=== PATIENT | female | born 1965 | race Caucasian/White ===

== ENCOUNTER → 2016-08-04 | Outpatient (CLI) | payer OTHER ==
[~2016-08-04] MED LIST: CELEXA PO; CYMBALTA PO; DESYREL50 MG PO; HUMIBID CS TABL1 TAB PO; IBUPROFEN PO; LEVAQUIN PO; LIPITOR PO; LIPITOR40 MG PO; LORATADINE PO; METHOCARBAMOL500 MG PO; NORCO 7.5-3251 EACH PO; PREDNISONE PO; SYMBICORT80 INH; SYNTHROID PO; VOLTAREN75 MG PO; ZOCOR10 MG PO
--- NOTE | ~2016-08-04 | MR31 ---
[facility] A Service of [facility] & [facility] RADIOLOGY TEXT RESULTS PATIENT: CHRIS HERNANDEZ LOCATION: CMRI : 63 UNIT #: [id number] AGE: [address]: Ghassan Mooney II, MD SEX: F ORDER DR: [id number] [facility] [address] [place], [place] [address] [id number] O MR#: [id number] Acc #: [id number] NAME: CHRIS HERNANDEZ. : 1965 SEX: F STUDY DATE/TIME: 08/04/2016 14:58 UNIT: [facility] ROOM: STUDY DESCRIPTION: MR Cervical WWo Contrast Attending Physician: Ghassan Mooney II., M.D. Referring Physician: Ghassan Mooney II., M.D. Ordering Physician: Ghassan Mooney II., M.D. Primary Care Physician: Bal Gerardo M.D. MRI CENTER REPORT This report is preliminary unless electronic signature is present. EXAM MRI of the cervical spine with and without contrast dated 08/04/2016. COMPARISON MRI cervical spine without contrast dated 12/24/2015. HISTORY Multiple sclerosis diagnosed 4-5 years ago. Patient has a cane to help with walking. Numbness in the left leg for 2 years. Intermittent imbalance. TECHNIQUE Multisequence multiplanar imaging of the cervical spine was obtained with and without contrast. GFR measured 41. 15 mL of MultiHance was administered intravenously. FINDINGS Disc osteophyte complex are noted throughout the cervical spine. Increased T2 signal is noted in the right posterolateral aspect of the C2-3 cord without enhancement. It measures 1 cm in height. Remaining cord does not demonstrate any significant signal change. It does appear compressed due to severe canal stenosis at C5-6 level. Pre and paravertebral soft tissues do not demonstrate any significant abnormality. Imaged posterior fossa is unremarkable. C2-3: Concentric disc bulge with gcmjubav-dx-ofjhqv right and moderate left facet hypertrophic change. Mild to moderate right neural foraminal narrowing. Borderline-sized canal. Stable. C3-4: Disc osteophyte complex with wrbqj-xu-kzwo subarticular broad-based disc protrusion, moderate to severe canal stenosis, mild bilateral facet changes and mild inferior bilateral neural foraminal encroachment. Stable. STS. [facility] A Service of [facility] RADIOLOGY TEXT RESULTS PATIENT: CHRIS HERNANDEZ LOCATION: CMRI : 63 UNIT #: [id number] AGE: [address]: Ghassan Mooney II, MD SEX: F ORDER DR: C4-5: Disc osteophyte complex which is asymmetrically prominent in the gazjt-kn-axrm subarticular region. Severe canal stenosis is seen with some cord flattening without direct cord impingement. Severe left and mild to moderate right neural foraminal narrowing are present. C5-6: Disc osteophyte complex with superimposed central to left foraminal moderate broad-based protrusion with suspicious extruded component in the center. Severe canal stenosis and cord compression is seen. There is severe left neural foraminal narrowing. Pvdg-io-bkpmyljd bilateral facet changes are noted. C6-7: Disc osteophyte complex with bilateral uncinate spurs, severe canal stenosis, inferior severe bilateral neural foraminal narrowing. Mild bilateral facet change. C7-T1: Mild disc bulge without canal stenosis or neural foraminal narrowing. Mild bilateral facet changes. IMPRESSION 1. Degenerative changes are noted at multiple levels as described above, worse at C5-6 followed by C6-7 and C4-5 with canal stenosis and neural foraminal narrowing. 2. There is cord compression at C5-6 without obvious cord signal change yet. 3. Increased T2 signal is noted in the right posterolateral aspect of C2-3 without enhancement. In the setting of multiple sclerosis. It is in keeping with chronic plaque. Stable. 1. Dictated by... Mahogany Celaya M.D. THIS IS AN ELECTRONICALLY VERIFIED REPORT Mahogany Celaya M.D. at 08/06/2016 4:18 PM MAYANK/celeste TD: 08/05/2016 15:21 JOB #: [id number] MRI CENTER REPORT Page 1 of 1 COPY
--- NOTE | ~2016-08-04 | MR17 ---
[facility] A Service of [facility] & [facility] RADIOLOGY TEXT RESULTS PATIENT: CHRIS HERNANDEZ LOCATION: CMRI : 63 UNIT #: [id number] AGE: [address]: Ghassan Mooney II, MD SEX: F ORDER DR: [id number] [facility] [address] [place], [place] [address] [id number] O MR#: [id number] Acc #: [id number] NAME: CHRIS HERNANDEZ. : 1965 SEX: F STUDY DATE/TIME: 08/04/2016 14:58 UNIT: [facility] ROOM: STUDY DESCRIPTION: MR Brain WWo Contrast Attending Physician: Ghassan Mooney II., M.D. Referring Physician: Ghassan Mooney II., M.D. Ordering Physician: Ghassan Mooney II., M.D. Primary Care Physician: Bal Gerardo M.D. MRI CENTER REPORT This report is preliminary unless electronic signature is present. EXAM MRI of the brain with and without contrast dated 08/04/2016 COMPARISON STUDIES MRI brain with and without contrast dated 12/25/2015 HISTORY Multiple sclerosis diagnosed 4-5 years ago. Patient has poor balance and uses a cane to walk. Numbness in the left leg for 2 years. TECHNIQUE Multisequence multiplanar imaging of the brain was obtained with and without contrast. GFR measured 41. 15 mL of MultiHance was administered intravenously. FINDINGS 10-15 hyperintense T2-signal lesions are scattered in the white matter both in the subcortical and periventricular regions. They appear to be relatively stable given differences in slice selection. No acute stroke, enhancing intracranial mass, hydrocephalus, hemorrhage or midline shift is seen. Vascular flow voids of the major cerebral arteries and dural venous sinuses are not obstructed in these thicker slices. Nasal septum is deviated to the left. Paranasal sinuses, mastoid air cells are well-aerated. Orbits with the ocular structures do not demonstrate any significant abnormality. Thick slices through the sella with the pituitary gland, pineal region and upper cervical spine do not demonstrate any significant abnormality either. IMPRESSION 1. There are 10-15 hyperintense T2-signal lesions scattered in the supratentorial white matter. They are in keeping with chronic multiple sclerosis plaques and are relatively stable given the differences in slice selection when compared to the prior study from [facility]. [facility] A Service of [facility] & [facility] RADIOLOGY TEXT RESULTS PATIENT: CHRIS HERNANDEZ LOCATION: CMRI : 63 UNIT #: [id number] AGE: [address]: Ghassan Mooney II, MD SEX: F ORDER DR: last year. 2. No enhancing acute plaque. Dictated by... Mahogany Celaya M.D. THIS IS AN ELECTRONICALLY VERIFIED REPORT Mahogany Celaya M.D. at 08/06/2016 4:18 PM CPR/celeste TD: 08/05/2016 15:30 JOB #: [id number] MRI CENTER REPORT Page 1 of 1 COPY
[2016-08-04 14:50] LABS: POC - CREATININE 1.42 mg/dL (0.44-1.03)
== END | disposition home or self-care (01) ==
LOC: CMRI 13:30
PROVIDERS: Psychiatry & Neurology Neurology
DX: G35 Multiple sclerosis (principal); M47.812 Spondylosis without myelopathy or radiculopathy, cervical region; M48.02 Spinal stenosis, cervical region; G95.20 Unspecified cord compression; G95.89 Other specified diseases of spinal cord; R90.89 Other abnormal findings on diagnostic imaging of central nervous system
CPT/HCPCS: 70553; 72156; 82565; A9577